=== PATIENT | male | born 1980 | race Caucasian/White ===

== ENCOUNTER 2021-10-04 17:39 | Observation (INO) ==
[2021-10-04] MEDS ORDERED: SODIUM CHLORIDE 0.9% 1,000 ML IV STA (23:06)
[2021-10-04] MEDS ORDERED: CLINDAMYCIN INJ 600 MG/50 ML PREMIX IV STA (23:06)
[2021-10-05 00:33] LABS: Bacteria,Urine Occasional /HPF (Few); Calcium Oxalate Crystals,Urine Occasional /HPF (Few); Mucus,Urine Many /LPF (Occasional); RBC,Urine 20 /HPF (0-4); Squamous Epithelial Cell,Urine Occasional /HPF (0-10); Urine Color Dark Yellow (Yellow)
[2021-10-05 00:34] LABS: Bilirubin,Urine Small mg/dL (Negative); Blood, Urine Moderate mg/dL (Negative); Glucose,Urine (UA) 100 mg/dL (Negative); Ketones,Urine Trace mg/dL (Negative); Nitrite,Urine Negative (Negative); Protein,Urine 100 mg/dL (Negative); Urine Appearance Clear (Clear); Urine pH 6.5 (4.5-8.0)
[2021-10-05 00:36] LABS: Basophils # 0.1 10*3/uL (0.0-0.2); Basophils % 1.9 % (0.0-0.8); Eosinophils # 0.1 10*3/uL (0.0-0.87); Eosinophils % 1.7 % (0.00-10.9); Hematocrit 40.1 VOL% (42.0-52.0); Hemoglobin 14.4 GM/DL (14.0-18.0); Immature Granulocytes % 0.2 %; Immature Granulocytes Absolute 0.01 #; Lymphocytes % 48.1 % (21.2-54.2); Mean Corpuscular HGB Conc 35.9 GM/DL (32-36); Mean Corpuscular Volume 101.3 FL (87-102); Mean Platelet Volume 10.1 FL (9.6-12.0); Monocytes # 0.4 10*3/uL (0.11-0.8); Monocytes % 8.8 % (1.7-12.7); Neutrophils % 39.3 % (38.7-73.9); Platelet Count 125 T/CUMM (130-400); Red Blood Count 3.96 MC/CUMM (3.8-5.5); Red Cell Distribution Width 12.1 % (9.3-17.3); White Blood Count 4.2 T/CUMM (4-12)
[2021-10-05 01:00] LABS: Salicylate < 2.8 MG/DL (2.8-20)
[2021-10-05 01:02] LABS: Acetaminophen < 2.0 UG/ML (10-30)
[2021-10-05] MEDS ORDERED: ONDANSETRON 4 MG/2 ML VIAL IV STA (01:05)
[2021-10-05] MEDS ORDERED: ONDANSETRON 4 MG/2 ML VIAL ONE (01:07)
[2021-10-05 01:09] LABS: Albumin 4.1 G/DL (3.4-5.0); Bilirubin,Total 0.6 MG/DL (0.20-1.00); Calcium 8.8 MG/DL (8.5-10.1); Osmolality,Calculated 279.7 MOS/KG (273-304); Potassium 3.5 MMOL/L (3.5-5.1)
[2021-10-05] MEDS ORDERED: THIAMINE INJ 100 MG, FOLIC ACID INJ 1 MG, MULTIVITAMIN INJ 10 ML in SODIUM CHLORIDE 0.9... IV ONE (01:35)
[2021-10-05 01:43] LABS: Barbiturates Screen,Urine Negative (Negative); Benzodiazepines Screen,Urine Negative (Negative); Cannabinoid Screen,Urine Positive (Negative); Opiate Screen,Urine Negative (Negative); Phencyclidine Screen,Urine Negative (Negative)
[2021-10-05] MEDS ORDERED: NICOTINE 21 MG/24 HR PATCH TRANSDERM PRN (05:34)
[2021-10-05] MEDS ORDERED: ACETAMINOPHEN 325 MG TABLET PO PRN (05:34)
[2021-10-05] MEDS ORDERED: ONDANSETRON 4 MG/2 ML VIAL IV PRN (05:34)
[2021-10-05] MEDS ORDERED: LACTULOSE 20 GM/30 ML UDCUP PO ONE (05:34)
[2021-10-05] MEDS ORDERED: GLUCAGON 1 MG VIAL IM PRN (05:34)
[2021-10-05] MEDS ORDERED: DEXTROSE 10% 250 ML BAG IV PRN (05:42)
[2021-10-05] MEDS ORDERED: DIAZEPAM 10 MG/2 ML SYRINGE IV PRN (05:45)
[2021-10-05] MEDS ORDERED: CLINDAMYCIN INJ 300 MG/50 ML PREMIX IV SCH (06:00)
[2021-10-05] MEDS ORDERED: LACTATED RINGERS 1,000 ML IV SCH (06:00)
[2021-10-05 06:46] LABS: Hepatitis B Core IgM Quant < 0.05 Index; Hepatitis B Surface Ag Quant < 0.10 Index; Hepatitis B Surface Ag Result Non-Reactive (NonReactive); Hepatitis C Virus Ab Quant 0.09 Index; Hepatitis C Virus Ab Result Non-Reactive (NonReactive)
[2021-10-05] MEDS ORDERED: LORazepam 1 MG TABLET PO STA (06:47)
[2021-10-05] MEDS ORDERED: INSULIN LISPRO 100 UNIT/ML SUBCUT SCH (07:30)
[2021-10-05 08:57] LABS: Albumin 3.4 G/DL (3.4-5.0); Calcium 7.8 MG/DL (8.5-10.1); Osmolality,Calculated 279.4 MOS/KG (273-304); Potassium 3.3 MMOL/L (3.5-5.1); Total Protein 6.4 G/DL (6.4-8.2)
[2021-10-05] MEDS ORDERED: PANTOPRAZOLE 40 MG TABLET PO SCH (09:00)
[2021-10-05] MEDS ORDERED: FOLIC ACID 1 MG TABLET PO SCH (09:00)
[2021-10-05] MEDS ORDERED: MULTIVITAMIN (CENTRUM) TABLET PO SCH (09:00)
[2021-10-05] MEDS ORDERED: THIAMINE 100 MG TABLET PO SCH (09:00)
[2021-10-05] MEDS ORDERED: POTASSIUM CHLORIDE 20 MEQ TABLET PO ONE (09:52)
[2021-10-05 11:35] VITALS: BP 140/83
== END 2021-10-05 11:45 ==
LOC: N.EDINP 17:39 → N.ED 17:39 → N.EDINP 10-05 07:18
PROVIDERS: ADMIT Family Medicine; ATTEND Family Medicine